=== PATIENT | female | born 1995 | race African-American/Black ===

== ENCOUNTER 2023-07-08 03:16 | Emergency (ER) | payer SELFPAY ==
[~2023-07-08] VITALS: Ht 165.1 cm; Wt 68.0 kg
[2023-07-08 03:22] VITALS: BP 138/90; PULSE 73; RESP 16; TEMP 96.4; O2SAT 100
[2023-07-08 03:40] VITALS: BP 138/90; PULSE 73; RESP 16; TEMP 96.4; O2SAT 100
== END 2023-07-08 04:00 ==
LOC: MED 03:16
DX: Z02.89 Encounter for other administrative examinations (principal); Z79.899 Other long term (current) drug therapy; V49.88XA Car occupant (driver) (passenger) injured in other specified transport accidents, initial encounter; Y93.89 Activity, other specified; Y92.89 Other specified places as the place of occurrence of the external cause; Y99.8 Other external cause status
CPT/HCPCS: 99283